=== PATIENT | male | born 2000 | race Caucasian/White ===

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

== ENCOUNTER 2020-01-26 09:21 | Emergency (ER) | payer SELFPAY ==
[~2020-01-26] VITALS: Ht 182.9 cm; Wt 72.0 kg
[2020-01-26 09:48] VITALS: BP 143/70
--- NOTE | 2020-01-26 09:59 | PHYS DOC ---
Past Medical History Past Medical History: No Pertinent History Past Surgical History: No Surgical History Smoking Status: Never Smoker Alcohol Use: None Drug Use: None General Adult EDM: Chief Complaint: WRIST PAIN HPI: HPI: Patient is a 19 year old male who presents with left dorsal wrist pain that started yesterday after he was wrestling. He states he is unsure of how he injured it but he states he thinks he sprained. States he has sharp shooting pain in the left dorsal wrist with movement. Denies numbness or tingling, coolness of the extremity, skin color or temperature change. Rates his pain 8 out of 10 when it is moving. Review of Systems: Review of Systems: Musculoskeletal: Denies back pain. Left wrist joint pain. [] Heart Score: Risk Factors: Risk Factors: DM, Current or recent (<one month) smoker, HTN, HLP, family history of CAD, obesity. Risk Scores: Score 0 - 3: 2.5% MACE over next 6 weeks - Discharge Home Score 4 - 6: 20.3% MACE over next 6 weeks - Admit for Clinical Observation Score 7 - 10: 72.7% MACE over next 6 weeks - Early Invasive Strategies Allergies: Allergies: Allergies Coded Allergies Type Severity Reaction Last Updated Verified Penicillins Allergy Unknown 01/26/20 Yes Physical Exam: PE: Constitutional: Well developed, well nourished, no acute distress, non-toxic appearance. [] HENT: Normocephalic, atraumatic, bilateral external ears normal, oropharynx moist, no oral exudates, nose normal. [] Eyes: PERRLA, EOMI, conjunctiva normal, no discharge. [] Neck: Normal range of motion, no tenderness, supple, no stridor. [] Cardiovascular:Heart rate regular rhythm, no murmur [] Lungs & Thorax: Bilateral breath sounds clear to auscultation [] Abdomen: Bowel sounds normal, soft, no tenderness, no masses, no pulsatile masses. [] Skin: Warm, dry, no erythema, no rash. [] Back: No tenderness, no CVA tenderness. [] Extremities: Left dorsal wrist tenderness, no cyanosis, no clubbing, ROM intact, no edema. [] Neurologic: Alert and oriented X 3, normal motor function, normal sensory fu nction, no focal deficits noted. [] Psychologic: Affect normal, judgement normal, mood normal. [] Current Patient Data: Vital Signs: Vital Signs Date Time Temp Pulse Resp B/P (MAP) Pulse Ox O2 Delivery O2 Flow Rate FiO2 01/26/20 09:48 98.1 58 16 143/70 (94) 98 Room Air 98.1 EKG: EKG: [] Radiology/Procedures: Radiology/Procedures: [] Impression: [facility] [address] [place] [address] IMAGING REPORT Signed PATIENT: TITO WINGOUNT: [id number] : 2000 LOCATION: ER AGE: 19 SEX: M EXAM STATUS: REG ER ORD. PHYSICIAN: JINNY ELLISON APRN REASON: Pain.pt injured wrist wrestling last night, pain lateral aspect PROCEDURE: WRIST 3V LEFT History: Reason: Pain.pt injured wrist wrestling last night, pain lateral aspect / Spl. Instructions: / History: AP, lateral, and oblique views of the left wrist were obtained. Comparison: none. No fracture, dislocation, significant degenerative changes, or soft tissue swelling is visualized. The carpal bones are well aligned. Impression: 1. Unremarkable plain film examination of the left wrist. Electronically signed by: José Ascencio MD (01/26/2020 10:19 AM) [id number] DICTATED and SIGNED BY: JOSÉ ASCENCIO MD DATE: 01/26/20 1019 Course & Med Decision Making: Course & Med Decision Making Pertinent Labs and Imaging studies reviewed. (See chart for details) Patient can wiggle all of his fingers and make a fist. He states that this does cause him pain in his wrist. Mid dorsal wrist pain tenderness with palpation. Radial pulse strong and present. Skin pink warm and dry. Cap refill less than 3 seconds. Does have full range of motion of the wrist but causes some pain. No laxity in the joint. No swelling or deformity. Patient placed in Velcro wrist splint. [] Dragon Disclaimer: Dragon Disclaimer: This electronic medical record was generated, in whole or in part, using a voice recognition dictation system. Departure Departure Impression: Primary Impression: Left wrist sprain Qualified Codes: S63.502A - Unspecified sprain of left wrist, initial encounter Disposition: HOME, SELF-CARE Condition: STABLE Referrals: NO PCP (PCP) SARA KHAN MD Patient Instructions: Wrist Sprain with [facility] Additional Instructions: Follow-up with your primary care or orthopedic doctor if needed. Use elevation and ice to help with pain. Rest your wrist. Take ibuprofen for your pain. Scripts Ibuprofen (IBUPROFEN) 600 Mg Tablet 600 MG PO PRN Q6HRS PRN for INFLAMMATION, #20 TAB Prov: JINNY ELLISON APRN 01/26/20 Justicifation of Admission Dx: Justifications for Admission: Justification of Admission Dx: N/A JINNY ELLISON APRN Jan 26, 2020 09:59
--- NOTE | 2020-01-26 10:22 | RAD ---
History: Reason: Pain.pt injured wrist wrestling last night, pain lateral aspect / Spl. Instructions: / History: AP, lateral, and oblique views of the left wrist were obtained. Comparison: none. No fracture, dislocation, significant degenerative changes, or soft tissue swelling is visualized. The carpal bones are well aligned. Impression: 1. Unremarkable plain film examination of the left wrist. Electronically signed by: José Ascencio MD (01/26/2020 10:19 AM) [id number]
[2020-01-26] MEDS ORDERED: IBUP-1007 PO (10:25)
== END 2020-01-26 10:55 | disposition home or self-care (01) ==
LOC: ER 09:21
DX: S63.592A Other specified sprain of left wrist, initial encounter (principal); Z88.0 Allergy status to penicillin; X58.XXXA Exposure to other specified factors, initial encounter; Y93.72 Activity, wrestling; Y92.89 Other specified places as the place of occurrence of the external cause; Y99.8 Other external cause status
CPT/HCPCS: 29125; 73110; 99283

== ENCOUNTER 2021-09-23 16:12 | Emergency (ER) | payer SELFPAY ==
[~2021-09-23] VITALS: Ht 182.9 cm; Wt 65.0 kg
[~2021-09-23 16:12] MED LIST: IBUP-1007 PO
[2021-09-23 16:30] VITALS: BP 131/95
[2021-09-23] MEDS ORDERED: IBUPROFEN 400 MG TABLET. PO ONE (17:00)
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
[2021-09-23] MEDS ORDERED: IBUP-1060 PO (17:51)
[2021-09-23] MEDS ORDERED: CYCL10TA19 PO (17:51)
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
== END 2021-09-23 18:09 | disposition home or self-care (01) ==
LOC: ER 16:12
DX: M25.511 Pain in right shoulder (principal); R10.9 Unspecified abdominal pain; G89.11 Acute pain due to trauma; F17.200 Nicotine dependence, unspecified, uncomplicated; Z88.0 Allergy status to penicillin; V49.59XA Passenger injured in collision with other motor vehicles in traffic accident, initial encounter; Y93.89 Activity, other specified; Y92.488 Other paved roadways as the place of occurrence of the external cause; Y99.8 Other external cause status
CPT/HCPCS: 73030; 99283